=== PATIENT | male | born 1995 | race African-American/Black ===

== ENCOUNTER 2018-07-05 07:46 | Outpatient (CLI) | payer BC ==
--- NOTE | 2018-07-05 08:54 | RAD ---
UPPER GI: History: Hematemesis with nausea. FINDINGS: Patient ingested the barium and crystals without difficulty. The esophageal mucosa and motility were normal. Stomach shows no extrinsic abnormalities. Duodenal bulb and C loop are normal. IMPRESSION: Unremarkable upper GI. POS: [facility]
== END 2018-07-05 07:47 | disposition home or self-care (01) ==
LOC: RAD 07:46
PROVIDERS: ATTEND Family Medicine
DX: K92.0 Hematemesis (principal)
CPT/HCPCS: 74247

== ENCOUNTER 2020-08-13 14:38 | Inpatient (IN) | payer BC, SELFPAY ==
[~2020-08-13 14:38] MED LIST: Iopamidol 370 76% 100 ML VIAL ONE
[2020-08-13] MEDS ORDERED: Acetaminophen 500 MG TAB ONE (15:00)
[2020-08-13 15:32] LABS: #Basophils 0.1 thou/uL (0.0-0.2); #Lymphocytes 1.8 thou/uL (1.20-3.40); #Monocytes 0.5 thou/uL (0.11-0.59); %Basophils 1.2 % (0.0-1.0); %Eosinophils 0.1 % (0.0-10.0); %Lymphocytes 28.4 % (21.0-51.0); %Monocytes 7.4 % (0.0-10.0); %Neutrophils 62.9 % (42.0-75.0); Hemoglobin 14.9 g/dL (14.0-18.0); Mean Corpuscular HGB CONC 32.3 g/dL (32.0-36.0); Mean Corpuscular Hemoglobin 29.1 pg (27.0-31.0); Mean Corpuscular Volume 90.2 fL (78.0-98.0); Mean Platelet Volume 7.7 fL (7.4-10.4); Platelet Count 213 thou/uL (130-400); RBC Distribution Width 12.8 % (11.5-14.5); Red Blood Cell (RBC) Count 5.11 mill/uL (4.70-6.10); White Blood Cell (WBC) Count 6.4 thou/uL (4.8-10.8)
[2020-08-13 15:39] LABS: INR-International Normal Ratio 0.9; PTT 31.8 sec (22.9-36.1); Prothrombin Time 12.2 sec (12.0-14.7)
[2020-08-13 15:40] LABS: D-Dimer Test 0.76 *mcg/mL (0.27-0.43)
[2020-08-13] MEDS ORDERED: Azithromycin 500 MG VIAL ONE (15:50)
[2020-08-13] MEDS ORDERED: Dexamethasone 10 MG/ML VIAL ONE (15:50)
[2020-08-13 15:52] LABS: ALT (SGPT) 64 U/L (8-55); AST (SGOT) 73 U/L (5-34); Albumin 4.1 g/dL (3.5-5.0); Alkaline Phosphatase 39 U/L (40-110); Anion Gap 15 mmol/L (10-20); BUN (Urea Nitrogen) 9 mg/dL (8.9-20.6); Bilirubin, Total 0.4 mg/dL (0.2-1.2); Calc. Creatinine Clearance 0 mL/min (70-130); Calcium 8.6 mg/dL (7.8-10.44); Carbon Dioxide 25 mmol/L (22-29); Chloride 106 mmol/L (98-107); Globulin 2.9 g/dL (2.4-3.5); Glucose 98 mg/dL (70-105); Potassium 4.3 mmol/L (3.5-5.1); Sodium 142 mmol/L (136-145)
--- NOTE | 2020-08-13 15:58 | RAD ---
EXAM: XR Chest 1 View Portable PROVIDED CLINICAL HISTORY: Dyspnea COMPARISON: None FINDINGS: Evaluation is markedly limited by patient body habitus. The cardiac silhouette appears normal in size . The lungs are hypoinflated. Bilateral airspace disease is suspected, most conspicuously at the left lung base. IMPRESSION: Limited study, with bilateral airspace disease suspected. Correlate for pneumonia.
--- NOTE | 2020-08-13 16:39 | CT ---
EXAM: CT pulmonary angiogram with IV contrast and 3-D MIP reconstructions PROVIDED CLINICAL HISTORY: Dyspnea, Covid positive COMPARISON: None FINDINGS: There is no evidence for central pulmonary embolus. There is insufficient visualization of the segmen radha pulmonary arterial structures on the basis of patient respiratory motion and body habitus for comment. There is extensive bilateral consolidation, predominating at the left upper and left lower lobes. Small right pleural effusion. No evidence for pneumothorax. No evidence for thoracic lymph node enlargement. The airway appears patent and of normal caliber. Prominent changes of fatty infiltration of the liver. The osseous structures demonstrate no concerning lytic or blastic lesions. IMPRESSION: 1. No evidence for central pulmonary embolus. Limitations as described. 2. Findings compatible with Covid pneumonia. 3. Small pleural fluid on the right.
[2020-08-13 20:04] LABS: Troponin I Less than 0.010 ng/mL (< 0.028)
--- NOTE | 2020-08-13 20:27 | PDOC.HHP ---
Hospitalist HPI - History of Present Illness Shortness of breath History of Present Illness: This a 25-year-old male patient with a history of obesity, asthma and hypertension who presents with worsening shortness of breath. He tested positive for Covid 8 days ago and requested symptoms he presented to the ED for further evaluation. He notes his father also has Covid. At presentation his blood pressure was 136/81, pulse 92, respiratory 28, temperature 100.3 and saturating at 100 on room air. At the time of my evaluation he was requiring 2 L of oxygen. His labs CBC was essentially normal. BMP showed elevated AST ALT and low alkaline phosphate. Renal function was within normal limits. D-dimer was elevated at 0.76 Chest imaging revealed no PE however had right pleural effusion small on the right with no evidence of pneumothorax.. He however had extensive bilateral consolidation predominant at the left upper and left lower lobes. He was started on azithromycin Decadron and received a liter of normal saline. Also received Tylenol. Hospitalist team was consulted for admission. Hospitalist ROS - Review of Systems Constitutional: reports: fever, malaise. denies: chills, sweats, weakness Respiratory: reports: cough, shortness of breath, SOB with excertion Cardiovascular: denies: chest pain, palpitations, orthopnea Genitourinary: denies: dysuria, incontinence All other systems reviewed; all pertinent +/- noted in HPI/Subj - Medication Medications: Medications: Refer to ambulatory list. Allergies: No known drug allergies Hospitalist History - Past Medical History Cardiac: reports: HTN - Past Surgical History Other Surgical History: Knee surgery - Family History Family History: reports: cardiac disorder - Social History Alcohol: reports: Occassional Living Situation: With Family - Exam General Appearance: awake alert General - other findings: Morbidly obese Eye: PERRL, anicteric sclera Heart: RRR, no murmur, no gallops, no rubs Respiratory - other findings: Reduced air entry mainly on left. Scattered wheezing. Gastrointestinal: soft, non-tender, non-distended, normal bowel sounds Extremities: no cyanosis, no clubbing, no edema Neurological: cranial nerve grossly intact, no weakness, no focal deficits Psychiatric: normal affect, normal behavior, A&O x 3 Hospitalist Results - Labs Result Diagrams: 08/17/20 05:36 08/18/20 06:03 Lab results: WBC 6.4 thou/uL (4.8-10.8) 08/13/20 15:19 Hgb 14.9 g/dL (14.0-18.0) 08/13/20 15:19 Hct 46.1 % (42.0-52.0) 08/13/20 15:19 MCV 90.2 fL (78.0-98.0) 08/13/20 15:19 Plt Count 213 thou/uL (130-400) 08/13/20 15:19 Neutrophils % 62.9 % (42.0-75.0) 08/13/20 15:19 Sodium 142 mmol/L (136-145) 08/13/20 15:19 Potassium 4.3 mmol/L (3.5-5.1) 08/13/20 15:19 Chloride 106 mmol/L (98-107) 08/13/20 15:19 Carbon Dioxide 25 mmol/L (22-29) 08/13/20 15:19 BUN 9 mg/dL (8.9-20.6) 08/13/20 15:19 Creatinine 1.07 mg/dL (0.7-1.3) 08/13/20 15:19 Glucose 98 mg/dL (70-105) 08/13/20 15:19 Lactic Acid 1.7 mmol/L (0.5-2.2) 08/13/20 15:19 Calcium 8.6 mg/dL (7.8-10.44) 08/13/20 15:19 Total Bilirubin 0.4 mg/dL (0.2-1.2) 08/13/20 15:19 AST 73 U/L (5-34) H 08/13/20 15:19 ALT 64 U/L (8-55) H 08/13/20 15:19 Alkaline Phosphatase 39 U/L (40-110) L 08/13/20 15:19 Troponin I Less than 0.010 ng/mL (< 0.028) 08/13/20 19:28 Serum Total Protein 7.0 g/dL (6.0-8.3) 08/13/20 15:19 Albumin 4.1 g/dL (3.5-5.0) 08/13/20 15:19 Hospitalist H&P A/P - Plan Plan: This a 25-year-old male patient for history of obesity hypertension presenting with worsening shortness of breath and tested positive for Covid 8 days ago. Chest imaging concerning for significant pneumonia. He will be managed for pneumonia and Covid for now. Pneumonia due to Covid Start steroids and vitamins As needed oxygen Monitor closely. Possible CAP Started on azithromycinceftriaxone Hypertension Monitor BP start home medicines when verified. VT prophylaxisLovenox CODE STATUS full code.
[2020-08-13 20:36] VITALS: BMI 57.9
[2020-08-13] MEDS: cefTRIAXone\\ROCEPHIN 1 GM in Sodium Chloride 0.9% 100 ML IVPB SCH (21:55)
[2020-08-13 23:04] LABS: Troponin I Less than 0.010 ng/mL (< 0.028)
[2020-08-14] MEDS ORDERED: Acetaminophen 325 MG TAB PO PRN (08:54)
[2020-08-14] MEDS ORDERED: FLU VACC QS2020-21(6MOS UP)/PF 60 MCG/0.5 ML SYRINGE IM ONE (09:00)
[2020-08-14] MEDS ORDERED: Enoxaparin Sodium 40 MG/0.4 ML SYRINGE SC SCH (09:00)
[2020-08-14] MEDS ORDERED: Dexamethasone 4 mg/ml Vial SLOW IVP SCH (09:00)
[2020-08-14] MEDS ORDERED: Albuterol 200 PUFF (6.7GM INHALER) INH PRN (09:20)
[2020-08-14] MEDS ORDERED: Amlodipine 5 MG TAB PO SCH (09:30)
[2020-08-14] MEDS ORDERED: Losartan 25 MG TAB PO SCH (09:30)
[2020-08-14] MEDS ORDERED: Metoprolol Tartrate 25 MG TAB PO SCH ×3 (09:30→21:00)
[2020-08-14 09:35] LABS: #Lymphocytes 1.7 thou/uL (1.20-3.40); #Monocytes 0.5 thou/uL (0.11-0.59); #Neutrophils 7.1 thou/uL (1.40-6.50); %Basophils 0.2 % (0.0-1.0); %Eosinophils 0.1 % (0.0-10.0); %Lymphocytes 18.2 % (21.0-51.0); %Monocytes 5.4 % (0.0-10.0); %Neutrophils 76.1 % (42.0-75.0); Hemoglobin 15.3 g/dL (14.0-18.0); Mean Corpuscular HGB CONC 31.2 g/dL (32.0-36.0); Mean Corpuscular Hemoglobin 28.6 pg (27.0-31.0); Mean Corpuscular Volume 91.7 fL (78.0-98.0); Mean Platelet Volume 8.8 fL (7.4-10.4); Platelet Count 185 thou/uL (130-400); RBC Distribution Width 12.8 % (11.5-14.5); Red Blood Cell (RBC) Count 5.35 mill/uL (4.70-6.10); White Blood Cell (WBC) Count 9.3 thou/uL (4.8-10.8)
[2020-08-14] MEDS ORDERED: REMDESIVIR (EUA) 200 MG in Sodium Chloride 0.9% 250 ML 210 ML IV SCH (09:45)
[2020-08-14] MEDS: Albuterol 200 PUFF (6.7GM INHALER) INH SCH ×3 (11:16→18:43)
[2020-08-14] MEDS ORDERED: Labetalol HCl 100 MG/20 ML VIAL SLOW IVP PRN (13:25)
[2020-08-14] MEDS: Enoxaparin Sodium 40 MG/0.4 ML SYRINGE SC SCH (21:07)
[2020-08-14] MEDS: cefTRIAXone\\ROCEPHIN 1 GM in Sodium Chloride 0.9% 100 ML IVPB SCH (21:07)
[2020-08-14] MEDS: Losartan 25 MG TAB PO SCH (21:07)
[2020-08-14] MEDS: Metoprolol Tartrate 50 MG TAB PO SCH (21:08)
--- NOTE | 2020-08-14 23:21 | PDOC.HOSPP ---
- Subjective Encounter Date: 08/14/20 Encounter Time: 10:00 Subjective: Patient seen and examined for respiratory failure due to go but 19 pneumonia. Short of breath on moderate exertion. Mild dry cough. Denies any chills. No nausea or vomiting. - Objective Vital Signs & Weight: Vital Signs (12 hours) Temp Pulse Resp BP Pulse Ox 08/14/20 20:00 98.4 F 91 20 144/97 H 98 08/14/20 15:35 99.2 F 97 18 157/104 H 95 08/14/20 12:00 100.8 F H 96 18 156/105 H 98 Weight Weight 404 lb 1.6 oz Result Diagrams: 08/14/20 09:22 08/13/20 15:19 Additional Labs: Abnormal Lab Results - Last 48 hrs 08/13/20 15:19: Basophils % 1.2 H 08/13/20 15:19: D-Dimer 0.76 H 08/13/20 15:19: AST 73 H, ALT 64 H, Alkaline Phosphatase 39 L 08/14/20 09:21: C-Reactive Protein 4.73 H 08/14/20 09:22: MCHC 31.2 L, Neutrophils % 76.1 H, Lymphocytes % 18.2 L, Neutrophils # 7.1 H 08/14/20 09:22: Ferritin 859.38 H Microbiology - Entire Visit 08/13/20 15:29 Venous blood - Right Arm Blood Culture - Preliminary Coagulase Neg Staphylococcus 08/13/20 15:19 Venous blood - Left Hand Blood Culture - Preliminary Gram Positive Cocci Radiology Reviewed by me: Yes (Chest x-raypneumonia) Hospitalist ROS - Review of Systems Gastrointestinal: denies: nausea, vomiting, abdominal pain, diarrhea, constipation, melena, hematochezia, other Genitourinary: denies: dysuria, frequency, incontinence, hematuria, retention, other - Medication Medications: Active Medications Generic Name Dose Route Start Last Admin Trade Name Freq PRN Reason Stop Dose Admin Albuterol Sulfate 2 puff 08/14/20 10:30 08/14/20 18:43 Albuterol 200 Puff (6.7gm Inhaler) INH 2 puff [id number] JULIA Administration Enoxaparin Sodium 40 mg 08/14/20 21:00 08/14/20 21:07 Enoxaparin Sodium 40 Mg/0.4 Ml Syringe SC 40 mg 0900,2100 JULIA Administration Ceftriaxone Sodium 1 gm/ 100 mls @ 200 mls/hr 08/13/20 22:00 08/14/20 21:07 Sodium Chloride IVPB 100 mls 2200 JULIA Administration Losartan Potassium 25 mg 08/14/20 21:00 08/14/20 21:07 Losartan 25 Mg Tab PO 25 mg BID JULIA Administration Metoprolol Tartrate 50 mg 08/14/20 21:00 08/14/20 21:08 Metoprolol Tartrate 50 Mg Tab PO 50 mg BID JULIA Administration - Exam General Appearance: ill appearing Neck: supple, symmetric, no JVD Heart: RRR, no gallops, no rubs, normal peripheral pulses Respiratory: no wheezes, normal chest expansion, normal percussion, rales, rhonchi Gastrointestinal: soft, non-tender, normal bowel sounds, no guarding, no rigidity Extremities: no cyanosis Neurological: no new deficit Musculoskeletal: generalized weakness Psychiatric: normal affect, A&O x 3 Hosp A/P - Plan DVT proph w/lovenox, DVT proph w/SCDs Acute hypoxic respiratory failure due to Coumadin 19 pneumonia Morbid obesity with BMI 58 Hypertension Elevated inflammatory markers Abnormal LFTs Plan: Continue empiric antibiotics. Patient will probably benefit from Remdesivir and dexamethasone. Increase Lovenox to 40 mg bid to prevent DVT. Add albuterol inhalers. Resume amlodipine, metoprolol and losartan. Monitor inflammatory markers. Continue other medications as above
[2020-08-15] MEDS: Albuterol 200 PUFF (6.7GM INHALER) INH SCH ×7 (00:13→22:43)
[2020-08-15 08:56] LABS: #Basophils 0.1 thou/uL (0.0-0.2); #Lymphocytes 2.1 thou/uL (1.20-3.40); #Monocytes 1.1 thou/uL (0.11-0.59); #Neutrophils 4.9 thou/uL (1.40-6.50); %Basophils 0.7 % (0.0-1.0); %Eosinophils 0.1 % (0.0-10.0); %Lymphocytes 25.8 % (21.0-51.0); %Monocytes 13.1 % (0.0-10.0); %Neutrophils 60.2 % (42.0-75.0); Hemoglobin 14.6 g/dL (14.0-18.0); Mean Corpuscular HGB CONC 31.1 g/dL (32.0-36.0); Mean Corpuscular Hemoglobin 28.4 pg (27.0-31.0); Mean Corpuscular Volume 91.5 fL (78.0-98.0); Platelet Count 283 thou/uL (130-400); RBC Distribution Width 12.8 % (11.5-14.5); Red Blood Cell (RBC) Count 5.13 mill/uL (4.70-6.10); White Blood Cell (WBC) Count 8.1 thou/uL (4.8-10.8)
[2020-08-15] MEDS ORDERED: Losartan 25 MG TAB PO SCH (09:00)
[2020-08-15 09:09] LABS: ALT (SGPT) 47 U/L (8-55); AST (SGOT) 42 U/L (5-34); Albumin 3.6 g/dL (3.5-5.0); Alkaline Phosphatase 32 U/L (40-110); Anion Gap 15 mmol/L (10-20); BUN (Urea Nitrogen) 13 mg/dL (8.9-20.6); Bilirubin, Total 0.4 mg/dL (0.2-1.2); Calc. Creatinine Clearance 359 mL/min (70-130); Calcium 8.3 mg/dL (7.8-10.44); Carbon Dioxide 21 mmol/L (22-29); Chloride 106 mmol/L (98-107); Globulin 2.9 g/dL (2.4-3.5); Glucose 99 mg/dL (70-105); Potassium 3.9 mmol/L (3.5-5.1); Protein, Total 6.5 g/dL (6.0-8.3); Sodium 138 mmol/L (136-145)
[2020-08-15] MEDS: Losartan 25 MG TAB PO SCH ×2 (09:18→20:25)
[2020-08-15] MEDS: Metoprolol Tartrate 50 MG TAB PO SCH ×2 (09:19→20:25)
[2020-08-15] MEDS: Dexamethasone 4 mg/ml Vial SLOW IVP SCH (09:19)
[2020-08-15] MEDS: Enoxaparin Sodium 40 MG/0.4 ML SYRINGE SC SCH ×2 (09:19→20:24)
[2020-08-15] MEDS: Amlodipine 5 MG TAB PO SCH (09:19)
[2020-08-15] MEDS: REMDESIVIR (EUA) 100 MG in Sodium Chloride 0.9% 250 ML 230 ML IV SCH (12:59)
[2020-08-15] MEDS ORDERED: Vancomycin 1 GM in Premix Bag 1 BAG IVPB SCH (13:00)
[2020-08-15] MEDS: Cholecalciferol 1,000 UNITS (25 MCG) TAB PO SCH (20:24)
[2020-08-15] MEDS: Ascorbic Acid 500 mg Chewable Tablet PO SCH (20:25)
[2020-08-15] MEDS: Zinc Sulfate 220 MG CAP PO SCH (20:25)
[2020-08-15] MEDS: cefTRIAXone\\ROCEPHIN 1 GM in Sodium Chloride 0.9% 100 ML IVPB SCH (20:26)
--- NOTE | 2020-08-15 20:32 | PDOC.HOSPP ---
- Subjective Encounter Date: 08/15/20 Encounter Time: 11:00 Subjective: Patient seen and examined for respiratory failure due to COVID-19 pneumonia. RN reported positive blood cultures. Patient denies any chest pain, fever or chills. Shortness of breath improving. Requiring supplemental O2. - Objective Vital Signs & Weight: Vital Signs (12 hours) Pulse 08/15/20 09:19 79 Weight Weight 404 lb 1.6 oz Result Diagrams: 08/15/20 08:24 08/15/20 08:24 Additional Labs: Accuchecks 08/15/20 16:19 POC Glucose 125 H Abnormal Lab Results - Last 48 hrs 08/14/20 09:21: C-Reactive Protein 4.73 H 08/14/20 09:22: MCHC 31.2 L, Neutrophils % 76.1 H, Lymphocytes % 18.2 L, Neutrophils # 7.1 H 08/14/20 09:22: Ferritin 859.38 H 08/15/20 08:24: D-Dimer 0.46 H 08/15/20 08:24: Carbon Dioxide 21 L, AST 42 H, Alkaline Phosphatase 32 L 08/15/20 08:24: C-Reactive Protein 2.94 H 08/15/20 08:24: MCHC 31.1 L, Monocytes % 13.1 H, Monocytes # 1.1 H Microbiology - Entire Visit 08/13/20 15:19 Venous blood - Left Hand Blood Culture - Preliminary Coagulase Neg Staphylococcus 08/13/20 15:29 Venous blood - Right Arm Blood Culture - Preliminary Coagulase Neg Staphylococcus Radiology Reviewed by me: Yes (CTApneumonia) Hospitalist ROS - Review of Systems Respiratory: denies: cough, dry, shortness of breath, hemoptysis, SOB with excertion, pleuritic pain, sputum, wheezing, other Cardiovascular: denies: chest pain, palpitations, orthopnea, paroxysmal noc. dyspnea, edema, light headedness, other - Medication Medications: Active Medications Generic Name Dose Route Start Last Admin Trade Name Freq PRN Reason Stop Dose Admin Albuterol Sulfate 2 puff 08/14/20 10:30 08/15/20 19:38 Albuterol 200 Puff (6.7gm Inhaler) INH Not Given [id number] JULIA Amlodipine Besylate 5 mg 08/15/20 09:00 08/15/20 09:19 Amlodipine 5 Mg Tab PO 5 mg DAILY JULIA Administration Dexamethasone 6 mg 08/15/20 09:00 08/15/20 09:19 Dexamethasone 4 Mg/Ml Vial SLOW IVP 6 mg DAILY JULIA Administration Enoxaparin Sodium 40 mg 08/14/20 21:00 08/15/20 09:19 Enoxaparin Sodium 40 Mg/0.4 Ml Syringe SC 40 mg 0900,2100 JULIA Administration Ceftriaxone Sodium 1 gm/ 100 mls @ 200 mls/hr 08/13/20 22:00 08/14/20 21:07 Sodium Chloride IVPB 100 mls 2200 JULIA Administration Remdesivir 100 mg/ Sodium 250 mls @ 250 mls/hr 08/15/20 10:00 08/15/20 12:59 Chloride IV 08/18/20 10:59 250 mls 1000 JULIA Administration Vancomycin HCl 2 gm/ Sodium 500 mls @ 250 mls/hr 08/15/20 14:00 08/15/20 14:54 Chloride IVPB 500 mls Q8HR JULIA Administration Losartan Potassium 25 mg 08/14/20 21:00 08/15/20 09:18 Losartan 25 Mg Tab PO 25 mg BID JULIA Administration Metoprolol Tartrate 50 mg 08/14/20 21:00 08/15/20 09:19 Metoprolol Tartrate 50 Mg Tab PO 50 mg BID JULIA Administration - Exam General Appearance: ill appearing Neck: supple, no JVD Heart: RRR, no gallops Respiratory: no wheezes, rales, rhonchi Gastrointestinal: soft, non-distended, no bruit, no guarding Extremities: no cyanosis, no clubbing Neurological: no new deficit Musculoskeletal: generalized weakness Hosp A/P - Plan DVT proph w/lovenox, DVT proph w/SCDs Acute hypoxic respiratory failure due to Coumadin 19 pneumonia 2 of 2 bacteremia with coagulase-negative staph Morbid obesity with BMI 58 Hypertension Elevated inflammatory markers Abnormal LFTs Plan: Add IV vancomycin. Monitor vancomycin level. Continue isolation. Discontinue ceftriaxone. Continue remdesivir with dexamethasone. Continue Lovenox for DVT prophylaxis. Continue antihypertensives. Consult infectious disease.
[2020-08-16] MEDS: Albuterol 200 PUFF (6.7GM INHALER) INH SCH ×6 (02:33→23:41)
[2020-08-16 07:22] LABS: ALT (SGPT) 58 U/L (8-55); AST (SGOT) 50 U/L (5-34); Albumin 4.2 g/dL (3.5-5.0); Alkaline Phosphatase 34 U/L (40-110); Anion Gap 18 mmol/L (10-20); BUN (Urea Nitrogen) 14 mg/dL (8.9-20.6); Bilirubin, Total 0.5 mg/dL (0.2-1.2); Calc. Creatinine Clearance 317 mL/min (70-130); Carbon Dioxide 22 mmol/L (22-29); Chloride 107 mmol/L (98-107); Globulin 3.6 g/dL (2.4-3.5); Glucose 90 mg/dL (70-105); Potassium 4.1 mmol/L (3.5-5.1); Protein, Total 7.8 g/dL (6.0-8.3); Sodium 143 mmol/L (136-145)
[2020-08-16] MEDS: Amlodipine 5 MG TAB PO SCH (08:33)
[2020-08-16] MEDS: Losartan 25 MG TAB PO SCH ×4 (08:33→20:45)
[2020-08-16] MEDS: Metoprolol Tartrate 50 MG TAB PO SCH ×2 (08:33→20:44)
[2020-08-16] MEDS: Dexamethasone 4 mg/ml Vial SLOW IVP SCH (08:34)
[2020-08-16] MEDS: Enoxaparin Sodium 40 MG/0.4 ML SYRINGE SC SCH ×2 (08:34→20:44)
[2020-08-16 08:46] LABS: Band 12 % (5-11); Hemoglobin 15.4 g/dL (14.0-18.0); Lymphocytes 30 % (21-51); MDiff Complete? YES; Mean Corpuscular HGB CONC 31.8 g/dL (32.0-36.0); Mean Corpuscular Hemoglobin 28.5 pg (27.0-31.0); Mean Corpuscular Volume 89.9 fL (78.0-98.0); Monocytes 1 % (0-10); Neutrophil 43 % (42-75); Platelet Clumps MARKED; Platelet Count 139 thou/uL (130-400); Platelet Morphology Comment Appears Adequate; Polychromasia SLIGHT = 2-3 cells (100X) (0-2/hpf); RBC Distribution Width 12.8 % (11.5-14.5); Reactive Lymphocytes 14 % (0-10); Red Blood Cell (RBC) Count 5.39 mill/uL (4.70-6.10); White Blood Cell (WBC) Count 8.7 thou/uL (4.8-10.8)
[2020-08-16] MEDS: REMDESIVIR (EUA) 100 MG in Sodium Chloride 0.9% 250 ML 230 ML IV SCH (10:16)
--- NOTE | 2020-08-16 11:21 | CON ---
DATE OF CONSULTATION: 08/16/2020 REASON FOR CONSULTATION: Bacteremia. HISTORY OF PRESENT ILLNESS: This is a 25-year-old hx obesity, hypertension, who was diagnosed with SARS-CoV-2 infection with symptoms onset 8 days before admission. He initially presented with cough, shortness of breath, chest pain, diarrhea, low grade fever. Initial pulse of 110, BP 200/120, O2 saturation 88 on room air and 100% later on room air. Lungs are clear to auscultation and percussion. Heart exam normal. Abdomen soft. Skin examination normal. Initial findings included a normal CBC essentially. D-dimer 0.76. Sodium 142, creatinine 1.07. AST 73, ALT 64, alkaline phosphatase 39. CRP was 4.73. He had CT angio of chest, which demonstrated few areas of scattered ground-glass opacities, particularly on the left side, quite prominent on the left side actually in the upper lobes, but less prominent in the lower lobes on the left side. The right side is much more clear. Since admission, the patient has had one temp elevation of 100.8. He was requiring 2 L nasal cannula O2, saturating 100%, and then we have 2 sets of blood cultures with Staphylococcus hominis from admission, one was shown as collected on August 13 at 3:29 p.m. and the second shown to be collected on the same date at 3:19 p.m., they are 10 minutes apart. Currently, Mr. Denis is sitting in a chair by the bedside, appears well. No tachypnea and no distress. No headaches. Mild cough. No chest pain. No abdominal pain or diarrhea. No genitourinary symptoms. No joint symptoms. No skin disorder. PAST MEDICAL HISTORY: Obesity, hypertension, asthma, likely sleep apnea, and had the right and left knee surgeries, ACL tears mostly. SOCIAL HISTORY: Drinks weekly. No drug use. Never smoker. Lives in the area. FAMILY HISTORY: Obesity, hypertension. ALLERGIES: NONE. MEDICATION LIST: At the moment, he is on; 1. Inhalers. 2. Norvasc. 3. Decadron. 4. Vancomycin. 5. Remdesivir. PHYSICAL EXAMINATION: VITAL SIGNS: Showed normal temperature, O2 saturation 100 on 2 L. SKIN: Normal. Peripheral IV access. He is voiding in the toilet. No lymphadenopathy. HEENT: Ocular movements conjugate. Oral cavity normal. LUNGS: Symmetric air entry. A few crackles on the left side. HEART: S1 and S2, regular rate. ABDOMEN: Soft. Not distended or tender. Difficult abdominal exam because of obesity. No maceration of the skin noted in the intertriginous areas. MUSCULOSKELETAL: No joint inflammatory activity. No edema. Pulses are excellent in lower extremities. NEUROLOGIC: Nonfocal. LABORATORY DATA: Latest labs, creatinine normal. AST and ALT are mildly elevated. Albumin 4.2. CBC with 14% reactive lymphocytes. C-reactive protein is down. ASSESSMENT: Obesity, hypertension, moderate SARS-CoV-2 pneumonia. Bacteremia is most likely secondary to contamination of the sample. We would recommend discontinuation of vancomycin. We would continue remdesivir and Decadron. Despite his young age, he is at risk for deterioration because of his risk factors. Continue monitoring markers. Today is the 11th day, so he is actually in the middle of the second week, so hopefully things will start to turn around and allow discharge planning in the next few days. Job ID: [id number] MTDD
[2020-08-16 13:53] LABS: Vancomycin, Trough 18.4 ug/mL
[2020-08-16] MEDS ORDERED: Amlodipine 5 MG TAB PO SCH (14:00)
--- NOTE | 2020-08-16 19:47 | PDOC.HOSPP ---
- Subjective Encounter Date: 08/16/20 Encounter Time: 14:00 Subjective: Patient seen and examined for respiratory failure due to pneumonia. Shortness of breath improving. Mild dry cough. No nausea, vomiting or diarrhea. - Objective Vital Signs & Weight: Vital Signs (12 hours) Temp Pulse Resp BP Pulse Ox 08/16/20 14:50 98.1 F 88 20 148/83 H 08/16/20 12:00 98.0 F 90 20 170/102 H 100 08/16/20 08:33 77 08/16/20 08:00 97.9 F 97 20 155/111 H 100 Weight Weight 404 lb 1.6 oz I&O: 08/15/20 08/16/20 08/17/20 06:59 06:59 06:59 Output Total 400 Balance -400 Result Diagrams: 08/16/20 06:46 08/16/20 06:46 Additional Labs: Accuchecks 08/16/20 05:26 POC Glucose 97 Abnormal Lab Results - Last 48 hrs 08/15/20 08:24: D-Dimer 0.46 H 08/15/20 08:24: Carbon Dioxide 21 L, AST 42 H, Alkaline Phosphatase 32 L 08/15/20 08:24: C-Reactive Protein 2.94 H 08/15/20 08:24: MCHC 31.1 L, Monocytes % 13.1 H, Monocytes # 1.1 H 08/16/20 06:46: AST 50 H, ALT 58 H, Alkaline Phosphatase 34 L, Globulin 3.6 H 08/16/20 06:46: MCHC 31.8 L, Band Neuts % (Manual) 12 H, Reactive Lymphs % 14 H, Clumped Platelets MARKED H Microbiology - Entire Visit 08/13/20 15:29 Venous blood - Right Arm Blood Culture - Final Staph. hominus subsp. hominus 08/13/20 15:19 Venous blood - Left Hand Blood Culture - Final Staph. hominus subsp. hominus Radiology Reviewed by me: Yes (Chest x-rayreviewed) Hospitalist ROS - Review of Systems Cardiovascular: denies: chest pain, palpitations, orthopnea, paroxysmal noc. dyspnea, edema, light headedness, other Gastrointestinal: denies: nausea, vomiting, abdominal pain, diarrhea, constipation, melena, hematochezia, other - Medication Medications: Active Medications Generic Name Dose Route Start Last Admin Trade Name Freq PRN Reason Stop Dose Admin Albuterol Sulfate 2 puff 08/14/20 10:30 08/16/20 18:30 Albuterol 200 Puff (6.7gm Inhaler) INH 2 puff [id number] JULIA Administration Ascorbic Acid 1,000 mg 08/15/20 21:00 08/15/20 20:25 Ascorbic Acid 500 Mg Chewable Tablet PO 1,000 mg HS JULIA Administration Cholecalciferol 1,000 units 08/15/20 21:00 08/15/20 20:24 Cholecalciferol 1,000 Units (25 Mcg) Tab PO 1,000 units HS JULIA Administration Dexamethasone 6 mg 08/15/20 09:00 08/16/20 08:34 Dexamethasone 4 Mg/Ml Vial SLOW IVP 6 mg DAILY JULIA Administration Enoxaparin Sodium 40 mg 08/14/20 21:00 08/16/20 08:34 Enoxaparin Sodium 40 Mg/0.4 Ml Syringe SC 40 mg 0900,2100 JULIA Administration Remdesivir 100 mg/ Sodium 250 mls @ 250 mls/hr 08/15/20 10:00 08/16/20 10:16 Chloride IV 08/18/20 10:59 250 mls 1000 JULIA Administration Metoprolol Tartrate 50 mg 08/14/20 21:00 08/16/20 08:33 Metoprolol Tartrate 50 Mg Tab PO 50 mg BID JULIA Administration Sodium Chloride 10 ml 08/15/20 21:00 08/16/20 08:34 Flush - Normal Saline 10 Ml Syringe IVF 10 ml Q12HR JULIA Administration Zinc Sulfate 220 mg 08/15/20 21:00 08/15/20 20:25 Zinc Sulfate 220 Mg Cap PO 220 mg HS JULIA Administration - Exam General Appearance: ill appearing Neck: supple, no JVD Heart: RRR, no gallops Respiratory: rales, rhonchi Gastrointestinal: soft, no guarding, no rigidity Extremities: no cyanosis Neurological: no new deficit Hosp A/P - Plan DVT proph w/lovenox, DVT proph w/SCDs Acute hypoxic respiratory failure due to Coumadin 19 pneumonia 2 of 2 bacteremia with coagulase-negative staphcontaminant per ID Morbid obesity with BMI 58 Hypertension Elevated inflammatory markers Abnormal LFTs Plan: Continue O2 supplementation with bronchodilators. Continue remdesivir. In crease amlodipine and losartan due to elevated blood pressure. Continue Toprol- XL. Check inflammatory markers in a.m. Continue isolation. Continue other medications as above. 08/15 Add IV vancomycin. Monitor vancomycin level. Continue isolation. Discontinue ceftriaxone. Continue remdesivir with dexamethasone. Continue Lovenox for DVT prophylaxis. Continue antihypertensives. Consult infectious disease.
[2020-08-16] MEDS: Zinc Sulfate 220 MG CAP PO SCH (20:45)
[2020-08-16] MEDS: Cholecalciferol 1,000 UNITS (25 MCG) TAB PO SCH (20:45)
[2020-08-16] MEDS: Ascorbic Acid 500 mg Chewable Tablet PO SCH (20:45)
[2020-08-17] MEDS: Albuterol 200 PUFF (6.7GM INHALER) INH SCH ×6 (01:33→23:40)
[2020-08-17 06:45] LABS: ALT (SGPT) 60 U/L (8-55); AST (SGOT) 48 U/L (5-34); Albumin 3.7 g/dL (3.5-5.0); Alkaline Phosphatase 30 U/L (40-110); Anion Gap 12 mmol/L (10-20); BUN (Urea Nitrogen) 15 mg/dL (8.9-20.6); Bilirubin, Total 0.5 mg/dL (0.2-1.2); Calc. Creatinine Clearance 338 mL/min (70-130); Calcium 8.6 mg/dL (7.8-10.44); Carbon Dioxide 28 mmol/L (22-29); Chloride 107 mmol/L (98-107); Globulin 2.9 g/dL (2.4-3.5); Glucose 85 mg/dL (70-105); Protein, Total 6.6 g/dL (6.0-8.3); Sodium 143 mmol/L (136-145)
[2020-08-17 06:57] LABS: Hemoglobin 13.4 g/dL (14.0-18.0); Mean Corpuscular HGB CONC 31.2 g/dL (32.0-36.0); Mean Platelet Volume 7.8 fL (7.4-10.4); Platelet Count 462 thou/uL (130-400); RBC Distribution Width 12.6 % (11.5-14.5); White Blood Cell (WBC) Count 11.2 thou/uL (4.8-10.8)
[2020-08-17 07:53] LABS: Band 7 % (5-11); Eosinophils 1 % (0-10); Lymphocytes 32 % (21-51); MDiff Complete? YES; Metamyelocyte 1 % (0-0); Monocytes 4 % (0-10); Myelocyte 1 % (0-0); Neutrophil 46 % (42-75); Platelet Morphology Comment Appears Increased; RBC Morphology Normal; Reactive Lymphocytes 8 % (0-10)
[2020-08-17] MEDS: Dexamethasone 4 mg/ml Vial SLOW IVP SCH (08:22)
[2020-08-17] MEDS: REMDESIVIR (EUA) 100 MG in Sodium Chloride 0.9% 250 ML 230 ML IV SCH (08:22)
[2020-08-17] MEDS: Enoxaparin Sodium 40 MG/0.4 ML SYRINGE SC SCH ×2 (08:23→20:20)
[2020-08-17] MEDS: Amlodipine 10 MG TAB PO SCH (08:23)
[2020-08-17] MEDS: Metoprolol Tartrate 50 MG TAB PO SCH ×2 (08:23→20:19)
[2020-08-17] MEDS: Losartan 25 MG TAB PO SCH ×2 (08:23→20:19)
--- NOTE | 2020-08-17 18:52 | PDOC.HOSPP ---
- Subjective Encounter Date: 08/17/20 Encounter Time: 10:30 Subjective: Patient seen and examined for respiratory failure/COVID-19 pneumonia. Denies any new complaints. Short of breath on [id number] exertion. Mild dry cough. No fever or chills reported. - Objective Vital Signs & Weight: Vital Signs (12 hours) Temp Pulse Resp BP Pulse Ox 08/17/20 08:23 75 08/17/20 08:00 98.6 F 72 20 136/87 100 Weight Weight 404 lb 1.6 oz I&O: 08/16/20 08/17/20 08/18/20 06:59 06:59 06:59 Output Total 400 Balance -400 Result Diagrams: 08/17/20 05:36 08/17/20 05:36 Additional Labs: Accuchecks 08/15/20 11:50 POC Glucose 113 H Abnormal Lab Results - Last 48 hrs 08/16/20 06:46: AST 50 H, ALT 58 H, Alkaline Phosphatase 34 L, Globulin 3.6 H 08/16/20 06:46: MCHC 31.8 L, Band Neuts % (Manual) 12 H, Reactive Lymphs % 14 H, Clumped Platelets MARKED H 08/17/20 05:36: AST 48 H, ALT 60 H, Alkaline Phosphatase 30 L 08/17/20 05:36: WBC 11.2 H, Hgb 13.4 L, MCHC 31.2 L, Plt Count 462 H, Myelocytes % 1 H, Plt Morphology Comment Appears Increased H 08/17/20 05:36: C-Reactive Protein 0.63 H 08/17/20 05:36: Ferritin 509.93 H Microbiology - Entire Visit 08/13/20 15:29 Venous blood - Right Arm Blood Culture - Final Staph. hominus subsp. hominus 08/13/20 15:19 Venous blood - Left Hand Blood Culture - Final Staph. hominus subsp. hominus Radiology Reviewed by me: Yes (Chest x-rayreviewed) Hospitalist ROS - Review of Systems Cardiovascular: denies: chest pain, palpitations, orthopnea, paroxysmal noc. dyspnea, edema, light headedness, other Gastrointestinal: denies: nausea, vomiting, abdominal pain, diarrhea, constipation, melena, hematochezia, other - Medication Medications: Active Medications Generic Name Dose Route Start Last Admin Trade Name Freq PRN Reason Stop Dose Admin Albuterol Sulfate 2 puff 08/14/20 10:30 08/17/20 17:56 Albuterol 200 Puff (6.7gm Inhaler) INH 2 puff [id number] JULIA Administration Amlodipine Besylate 10 mg 08/17/20 09:00 08/17/20 08:23 Amlodipine 10 Mg Tab PO 10 mg DAILY JULIA Administration Ascorbic Acid 1,000 mg 08/15/20 21:00 08/16/20 20:45 Ascorbic Acid 500 Mg Chewable Tablet PO 1,000 mg HS JULIA Administration Cholecalciferol 1,000 units 08/15/20 21:00 08/16/20 20:45 Cholecalciferol 1,000 Units (25 Mcg) Tab PO 1,000 units HS JULIA Administration Dexamethasone 6 mg 08/15/20 09:00 08/17/20 08:22 Dexamethasone 4 Mg/Ml Vial SLOW IVP 6 mg DAILY JULIA Administration Enoxaparin Sodium 40 mg 08/14/20 21:00 08/17/20 08:23 Enoxaparin Sodium 40 Mg/0.4 Ml Syringe SC 40 mg 0900,2099 JULIA Administration Remdesivir 100 mg/ Sodium 250 mls @ 250 mls/hr 08/15/20 10:00 08/17/20 08:22 Chloride IV 08/18/20 10:59 250 mls 1000 JULIA Administration Losartan Potassium 50 mg 08/16/20 21:00 08/17/20 08:23 Losartan 25 Mg Tab PO 50 mg BID JULIA Administration Metoprolol Tartrate 50 mg 08/14/20 21:00 08/17/20 08:23 Metoprolol Tartrate 50 Mg Tab PO 50 mg BID JULIA Administration Sodium Chloride 10 ml 08/15/20 21:00 08/17/20 08:23 Flush - Normal Saline 10 Ml Syringe IVF 10 ml Q12HR JULIA Administration Zinc Sulfate 220 mg 08/15/20 21:00 08/16/20 20:45 Zinc Sulfate 220 Mg Cap PO 220 mg HS JULIA Administration - Exam General Appearance: NAD (At rest) Neck: supple, no JVD Heart: RRR, no gallops Respiratory: rales, rhonchi Gastrointestinal: soft, non-tender, normal bowel sounds Extremities: no cyanosis, no clubbing Neurological: no new deficit Hosp A/P - Plan DVT proph w/SCDs Acute hypoxic respiratory failure due to Coumadin 19 pneumonia 2 of 2 bacteremia with coagulase-negative staphcontaminant per ID Morbid obesity with BMI 58 Hypertension Elevated inflammatory markers Abnormal LFTs Plan: Continue remdesivir. LFTs stable. Inflammatory markers improving. D-dimer normal. Positive blood cultures contamination per ID. Continue remdesivir. Will consult bilingual case manager for oxygen set up. Continue other medications as above. DC in 24 hours if stable on home oxygen 08/16 Continue O2 supplementation with bronchodilators. Continue remdesivir. Increase amlodipine and losartan due to elevated blood pressure. Continue Toprol-XL. Check inflammatory markers in a.m. Continue isolation. Continue other medications as above. 08/15 Add IV vancomycin. Monitor vancomycin level. Continue isolation. Discontinue ceftriaxone. Continue remdesivir with dexamethasone. Continue Lovenox for DVT prophylaxis. Continue antihypertensives. Consult infectious disease.
[2020-08-17] MEDS: Zinc Sulfate 220 MG CAP PO SCH (20:18)
[2020-08-17] MEDS: Ascorbic Acid 500 mg Chewable Tablet PO SCH (20:19)
[2020-08-17] MEDS: Cholecalciferol 1,000 UNITS (25 MCG) TAB PO SCH (20:19)
[2020-08-18] MEDS: Albuterol 200 PUFF (6.7GM INHALER) INH SCH ×3 (02:30→09:51)
[2020-08-18 07:30] LABS: ALT (SGPT) 68 U/L (8-55); AST (SGOT) 44 U/L (5-34); Albumin 3.7 g/dL (3.5-5.0); Alkaline Phosphatase 33 U/L (40-110); Anion Gap 14 mmol/L (10-20); BUN (Urea Nitrogen) 14 mg/dL (8.9-20.6); Bilirubin, Total 0.4 mg/dL (0.2-1.2); Calc. Creatinine Clearance 355 mL/min (70-130); Calcium 8.8 mg/dL (7.8-10.44); Carbon Dioxide 23 mmol/L (22-29); Chloride 106 mmol/L (98-107); Globulin 3.1 g/dL (2.4-3.5); Glucose 91 mg/dL (70-105); Protein, Total 6.8 g/dL (6.0-8.3); Sodium 139 mmol/L (136-145)
[2020-08-18] MEDS: Metoprolol Tartrate 50 MG TAB PO SCH (07:58)
[2020-08-18] MEDS: Losartan 25 MG TAB PO SCH (07:58)
[2020-08-18] MEDS: Amlodipine 10 MG TAB PO SCH (07:58)
[2020-08-18] MEDS: Enoxaparin Sodium 40 MG/0.4 ML SYRINGE SC SCH (07:58)
[2020-08-18] MEDS: Dexamethasone 4 mg/ml Vial SLOW IVP SCH (07:59)
[2020-08-18 08:27] VITALS: BP 146/93; TEMP 98.7
[2020-08-18] MEDS: REMDESIVIR (EUA) 100 MG in Sodium Chloride 0.9% 250 ML 230 ML IV SCH (09:51)
--- NOTE | 2020-08-18 16:01 | PDOC.DS.DS ---
Provider - Provider Date of Admission: 08/13/20 17:57 Date of Discharge: 08/18/20 Admitting Provider: Edi Moreira MD Consultations: Infectious Disease Primary Care Physician: SAPNA MUELLER JR, MD Course - Hospital Course Hospital Course: Patient is a 25-year-old male with morbid obesity with a BMI 58, hypertension and asthma presented to the emergency room on 08/13 with shortness of breath with recent diagnosis of COVID 19 infection. His temperature in the emergency room was 100.3. CT angiogram of the chest was negative for pulmonary embolism. It showed findings compatible with COVID 19 pneumonia. He was started on dexamethasone, Remdesivir with supportive care. Patient showed good improvement with above measures. He was also evaluated by infectious disease Dr. Arciniega. He was found to have 2 of 2 blood cultures with contaminant. He appears stable for discharge. Final diagnoses: Acute hypoxic respiratory failure due to Coumadin 19 pneumonia 2 of 2 bacteremia with coagulase-negative staphcontaminant per ID Morbid obesity with BMI 58 Hypertension Elevated inflammatory markers Abnormal LFTs Resuscitation Status: 08/13/20 20:27 Resuscitation Status Routine Resuscitation Status: FULL: Full Resuscitation - Labs Lab Results: 08/17/20 05:36 08/18/20 06:03 Abnormal Lab Results - Last 48 hrs 08/17/20 05:36: AST 48 H, ALT 60 H, Alkaline Phosphatase 30 L 08/17/20 05:36: WBC 11.2 H, Hgb 13.4 L, MCHC 31.2 L, Plt Count 462 H, Myelocytes % 1 H, Plt Morphology Comment Appears Increased H 08/17/20 05:36: C-Reactive Protein 0.63 H 08/17/20 05:36: Ferritin 509.93 H 08/18/20 06:03: AST 44 H, ALT 68 H, Alkaline Phosphatase 33 L Microbiology - Entire Visit 08/13/20 15:29 Venous blood - Right Arm Blood Culture - Final Staph. hominus subsp. hominus 08/13/20 15:19 Venous blood - Left Hand Blood Culture - Final Staph. hominus subsp. hominus - Physical Exam Vitals: Vital Signs (12 hours) Temp Pulse Resp BP Pulse Ox 08/18/20 08:25 98.7 F 71 20 146/93 H 100 08/18/20 08:00 97 08/18/20 07:58 88 Weight Weight 404 lb 1.6 oz Physical Exam: The patient was seen and examined on the day of discharge. Plan - Discharge Medications Prescriptions: Dexamethasone 6 mg PO DAILY #5 tablet Home Medications: Medication Instructions Recorded Confirmed Type Amlodipine [Norvasc] 5 mg PO DAILY 08/13/20 08/13/20 History Losartan Potassium 100 mg PO DAILY 08/13/20 08/13/20 History Metoprolol Tartrate 50 mg PO BID 08/13/20 08/14/20 History Dexamethasone 6 mg PO DAILY #5 tablet 08/18/20 Rx Allergies: No Known Allergies Allergy (Verified 06/28/15 13:23) - Discharge Instructions Discharge Instructions:: YOUR PRESCRIPTIONS WERE SENT TO: [facility] [address], [place] [address] - Follow up Plan Referrals: Sapna Mueller Jr, MD [Primary Care Provider] - 7 Days Kurt Arciniega MD [Active] - 7 Days Disposition: HOME Quality - Care Measures CORE MEASURES:: N/A
== END 2020-08-18 15:18 | disposition home or self-care (01) | DRG 177 ==
LOC: ERS 14:38 → T4-A 17:57
PROVIDERS: ADMIT Internal Medicine; ATTEND Internal Medicine
PROC: 8E0ZXY6 Isolation (ICD-10-PCS; principal; 2020-08-13)
PROC: XW033E5 Introduction of Remdesivir Anti-infective into Peripheral Vein, Percutaneous Approach, New Technology Group 5 (ICD-10-PCS; 2020-08-14)
DX: U07.1 COVID-19 (principal); J96.01 Acute respiratory failure with hypoxia; J12.82 Pneumonia due to coronavirus disease 2019; Z68.44 Body mass index [BMI] 60.0-69.9, adult; E66.01 Morbid (severe) obesity due to excess calories; G47.30 Sleep apnea, unspecified; I10 Essential (primary) hypertension; I16.0 Hypertensive urgency; J45.909 Unspecified asthma, uncomplicated; Z98.890 Other specified postprocedural states; Z79.899 Other long term (current) drug therapy; Z79.51 Long term (current) use of inhaled steroids
CPT/HCPCS: 36415; 36416; 71045; 71275; 80053; 80202; 82728; 83605; 84484; 85025; 85379; 85610; 85730; 86140; 87040; 87077; 87149; 87186; 93005; 94760; J0456; J0696; J1100; J1650; J3370; J3490; J7030; J7050; Q9967